=== PATIENT | female | born 1995 | race Caucasian/White ===

== ENCOUNTER → 2022-04-08 02:16 | Observation (INO) ==
[2022-04-08 01:25] VITALS: TEMP 98.2
[2022-04-08 01:54] LABS: Bacteria,Urine Few per hpf (None-Few); Bilirubin,Urine Negative (Negative); Blood,Urine Moderate (Negative); Clarity,Urine Clear (Clear); Color,Urine Yellow (Yellow); Glucose,Urine (UA) Normal (Normal); Ketones,Urine 60 mg/dL (Negative); Leukocyte Esterase,Urine Small (Negative); Mucus,Urine Few per lpf (None-Few); Nitrite,Urine Negative (Negative); Protein,Urine Trace mg/dL (Neg-Trace); RBC,Urine TNTC per hpf (0-3); Specific Gravity,Urine 1.026 (1.010-1.025); Squamous Epithelial Cell,Urine Few per hpf (None-Few); Urobilinogen,Urine Normal (Normal)
== END | disposition home or self-care (01) ==
LOC: 1NENULAB
PROVIDERS: ADMIT Advanced Practice Midwife; ATTEND Advanced Practice Midwife

== ENCOUNTER → 2022-05-27 00:05 | Observation (INO) ==
[~2022-05-27 00:05] MED LIST: EPHEDrine 50 MG/ML VIAL IVP PRN; Epidural Premix (fent/bupiv) 110 ML EP SCH
== END | disposition home or self-care (01) ==
LOC: 1NENULAB
PROVIDERS: ADMIT Advanced Practice Midwife; ATTEND Advanced Practice Midwife

== ENCOUNTER 2022-06-01 23:43 | Inpatient (IN) ==
[~2022-06-01 23:43] MED LIST changes: +*HR* Nalbuphine 10 MG/ML AMPUL IV PRN; +Azithromycin 500 MG in 0.9 % Sodium Chloride 250 ML IVPB PRN; -EPHEDrine 50 MG/ML VIAL IVP PRN; -Epidural Premix (fent/bupiv) 110 ML EP SCH; +Famotidine 20 MG/2 ML VIAL IVP PRN; +Lidocaine 1% 20 ML MDV INFILT PRN; +Metoclopramide 10 MG/2 ML VIAL IVP PRN; +Naloxone 0.4 MG/ML INJ IVP PRN; +Ondansetron 4 MG/2 ML VIAL IVP PRN
[2022-06-02] MEDS: Ringers Solution, Lactated 1,000 ML IVC SCH ×2 (00:44→02:54)
[2022-06-02] MEDS ORDERED: Oxytocin 30 UNIT/503 ML BAG IVC SCH ×2 (00:45→08:30)
[2022-06-02 00:49] LABS: Basophils # 0.1 K/mcL (0.0-0.2); Basophils % 0.5 %; Eosinophils # 0.1 K/mcL (0.0-0.6); Eosinophils % 0.5 %; Hematocrit 39.5 % (35.3-44.9); Hemoglobin 13.2 g/dL (11.5-15.4); Immature Granulocytes % 0.5 % (0-4); Lymphocytes # 3.6 K/mcL (0.6-4.6); Lymphocytes % 27.1 %; Mean Corpuscular HGB Conc 33.4 g/dL (31.6-35.5); Mean Corpuscular Hemoglobin 29.6 pg (28.0-33.3); Mean Corpuscular Volume 88.6 fL (83.0-100.0); Mean Platelet Volume 10.6 fL (9.4-12.4); Monocytes # 1.2 K/mcL (0.0-1.3); Monocytes % 8.9 %; Neutrophils # 8.2 K/mcL (1.6-8.9); Platelet Count 314 K/mcL (140-400); Red Blood Count 4.46 M/mcL (3.82-4.97); Red Cell Distribution Width 13.2 % (11.5-14.5); Segmented Neutrophils % 62.5 %; White Blood Count 13.1 K/mcL (4.3-11.1)
[2022-06-02 00:57] LABS: Amphetamine Screen,Urine Negative ng/mL (Cutoff=1000); Barbiturate Screen,Urine Negative ng/mL (Cutoff=200); Benzodiazepines Screen,Urine Negative ng/mL (Cutoff=200); Cannabinoid Screen,Urine Negative ng/mL (Cutoff = 50); Cocaine Screen,Urine Negative ng/mL (Cutoff= 300); Opiate Screen,Urine Negative ng/mL (Cutoff=300); Phencyclidine Screen,Urine Negative ng/mL (Cutoff=25)
[2022-06-02] MEDS ORDERED: Epidural Premix (fent/bupiv) 110 ML EP ONE (02:10)
[2022-06-02] MEDS ORDERED: EPHEDrine 50 MG/ML VIAL IVP PRN (02:42)
[2022-06-02] MEDS ORDERED: Epidural Premix (fent/bupiv) 110 ML EP SCH (02:45)
[2022-06-02] MEDS ORDERED: Lanolin 7 G OINT...G. TP PRN (08:30)
[2022-06-02] MEDS ORDERED: Ondansetron ODT 4 MG TAB.RAPDIS SL PRN (08:30)
[2022-06-02] MEDS ORDERED: Benzocaine/Menthol 56 GM AEROSOL SPRAY TP PRN (08:30)
[2022-06-02] MEDS: Ibuprofen 600 MG TABLET PO SCH ×2 (10:25→16:39)
[2022-06-02] MEDS: Acetaminophen 325 MG TABLET PO SCH ×2 (10:26→16:38)
[2022-06-02] MEDS: Prenatal Vit/FA 1 EACH TABLET PO SCH (10:26)
[2022-06-03 09:05] VITALS: BP 128/74; PULSE 57; TEMP 98.1; O2SAT 99
[2022-06-03] MEDS: Acetaminophen 325 MG TABLET PO SCH ×2 (09:36→09:38)
[2022-06-03] MEDS: Ibuprofen 600 MG TABLET PO SCH ×3 (09:36→09:37)
[2022-06-03] MEDS: Prenatal Vit/FA 1 EACH TABLET PO SCH (09:37)
== END 2022-06-03 12:23 | disposition home or self-care (01) | DRG 807 ==
LOC: 1NENULAB → 1NENUOBS 06-02 08:31
PROVIDERS: ADMIT Advanced Practice Midwife; ATTEND Advanced Practice Midwife